=== PATIENT | female | born 1975 | race Caucasian/White ===

== ENCOUNTER 2022-01-13 07:44 | Outpatient (CLI) | payer BC, SELFPAY ==
--- NOTE | ~2022-01-13 | MR_ITS ---
EXAMINATION: MR hip LT wo con DATE: 01/13/2022 08:47 INDICATION: Bilateral hip pain. TECHNIQUE: Magnetic resonance imaging (MRI) of the left hip was performed without intravenous contras t. Sequences included axial and coronal PD-weighted FS FSE and axial T1-weighted FSE of the pelvis. S equences of the hip included 2D FIESTA, T1-weighted fast GRE, and axial, coronal, and sagittal PD-rochelle ghted FS FSE. COMPARISON: None FINDINGS: Bones/cartilage: Bone alignment is normal. No fracture. Osteitis pubis is noted. Small [id number] images of left hi p demonstrate shallow partial-thickness cartilage loss in the posterior joint with mild subchondral e des-like marrow signal intensity in the femoral head. There are small osteophytes of left hip. Labrum: There is a tear of left acetabular labrum. Fluid: There is no hip joint effusion. There is mild bilateral trochanteric bursitis. Soft tissues: There is mild tendinopathy of the left hamstring origin. There is severe tendinopathy of right hamstr ing origin. There is mild tendinopathy of the bilateral gluteus minimus tendons. The gluteus medius t endons are normal. IMPRESSION: 1. Mild left hip chondrosis. Left hip labral tear. Reviewed, dictated and finalized at location A.
== END 2022-01-13 07:45 | disposition home or self-care (01) ==
LOC: ANHIMG 07:47
PROVIDERS: PCP Internal Medicine; Visit Provider Internal Medicine
DX: M16.12 Unilateral primary osteoarthritis, left hip (principal); S73.102A Unspecified sprain of left hip, initial encounter; X58.XXXA Exposure to other specified factors, initial encounter
CPT/HCPCS: 73721